=== PATIENT | female | born 1990 | race Caucasian/White ===

== ENCOUNTER 2018-03-16 16:28 | Emergency (ER) | payer OTHER ==
[~2018-03-16] VITALS: Ht 160 cm; Wt 49.9 kg
[2018-03-16] MEDS ORDERED: XANAX0.25 MG ORAL (16:47)
[2018-03-16] MEDS ORDERED: NORCO 5-325 TA1 EACH ORAL (16:47)
--- NOTE | 2018-03-16 18:20 | Diagnostic Imaging Report ---
EXAM: XR Chest, 1 View CLINICAL HISTORY: Shortness of breath TECHNIQUE: Frontal view of the chest. COMPARISON: No relevant prior studies available. FINDINGS: Lungs: Hypoventilatory lungs. No consolidation. Pleural space: Unremarkable. No pneumothorax. Heart: Unremarkable. No cardiomegaly. Mediastinum: Unremarkable. Bones/joints: No acute osseous abnormality. IMPRESSION: No acute cardiopulmonary process.
--- NOTE | 2018-03-16 18:26 | Diagnostic Imaging Report ---
EXAM: XR Skull, 4 or More Views CLINICAL HISTORY: PAIN TECHNIQUE: Frontal, lateral and Coles views of the skull. COMPARISON: No relevant prior studies available. FINDINGS: Bones/joints: No acute fracture or malalignment. Sinuses: Unremarkable. No air-fluid levels. Soft tissues: Round radiodense foreign body projecting over the temporal bone is favored to represent an earring. No additional foreign bodies are identified. IMPRESSION: Round metallic foreign body projecting over the temporal bone is favored to represent an earring. No additional foreign bodies are identified.
[2018-03-16 18:41] VITALS: BP 112/74
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
== END 2018-03-16 18:41 | disposition home or self-care (01) ==
LOC: EMR 17:20
DX: F91.9 Conduct disorder, unspecified (principal)
CPT/HCPCS: 70250; 71045; 99284